=== PATIENT | male | born 2000 | race Caucasian/White ===

== ENCOUNTER 2022-08-20 09:11 | Emergency (ER) | payer OTHER ==
[~2022-08-20] VITALS: Ht 185.4 cm; Wt 113.5 kg
[2022-08-20] MEDS ORDERED: IBUPROFEN 800 MG TAB PO ONE (11:10)
[2022-08-20 12:08] LABS: HEMATOCRIT 44.3 % (42.0-52.0); HEMOGLOBIN 13.8 g/dl (13.5-17.5); MEAN CORPUSCULAR HEMOGLOBIN 27.5 pg (27.0-33.0); MEAN CORPUSCULAR HGB CONC 31.2 g/dl (32.0-36.5); MEAN CORPUSCULAR VOLUME 88.4 fl (80.0-96.0); PLATELET COUNT, AUTOMATED 285 10^3/uL (150-450); RED BLOOD COUNT 5.01 10^6/uL (4.30-6.10); WHITE BLOOD COUNT 8.1 10^3/uL (4.0-10.0)
[2022-08-20 14:41] VITALS: BP 133/62
[2022-08-20 15:17] LABS: BLOOD UREA NITROGEN 16 MG/DL (7-18); CALCIUM LEVEL 9.7 MG/DL (8.5-10.1); CARBON DIOXIDE LEVEL 27 MEQ/L (21-32); CHLORIDE LEVEL 109 MEQ/L (98-107); CK-MB VALUE MASS 2.3 NG/ML (<3.6); CREATININE FOR GFR 0.95 MG/DL (0.70-1.30); GLUCOSE, FASTING 100 MG/DL (70-100); MB/CK RELATIVE INDEX 1.35 (< OR =4); POTASSIUM SERUM 4.5 MEQ/L (3.5-5.1); SODIUM LEVEL 142 MEQ/L (136-145)
== END 2022-08-20 14:57 | disposition home or self-care (01) ==
LOC: M ED 09:11
DX: R07.89 Other chest pain (principal)

== ENCOUNTER 2023-05-05 08:55 | Emergency (ER) | payer OTHER ==
[~2023-05-05] VITALS: Ht 180.3 cm; Wt 123.2 kg
[2023-05-05] MEDS ORDERED: KETO10TAB PO (13:33)
[2023-05-05 13:40] VITALS: BP 161/99; TEMP 97.4; O2SAT 100
[2023-05-05 15:00] LABS: GC DNA AMPLIFICATION NEGATIVE (NEGATIVE)
== END 2023-05-05 13:41 | disposition home or self-care (01) ==
LOC: M ED 08:55
DX: N50.812 Left testicular pain (principal); N50.3 Cyst of epididymis

== ENCOUNTER → 2023-06-25 | Outpatient (CLI) | payer OTHER ==
[~2023-06-25] MED LIST: KETO10TAB PO
== END ==
LOC: M SOG 08:46
PROVIDERS: ATTEND Physician Assistant
DX: M79.632 Pain in left forearm (principal)

== ENCOUNTER → 2023-09-01 | Outpatient (CLI) | payer OTHER | LOC: M RAD 06:58 | PROVIDERS: ATTEND Physician Assistant | DX: M25.541 Pain in joints of right hand (principal); M65.841 Other synovitis and tenosynovitis, right hand ==

== ENCOUNTER 2023-11-06 10:48 | Day surgery (SDC) | payer OTHER ==
[~2023-11-06] VITALS: Ht 185.4 cm; Wt 130.0 kg
[~2023-11-06 10:48] MED LIST changes: +ceFAZolin SOD 2 GM in IV 1 EA IV ONE
[2023-11-06] MEDS ORDERED: LR 1,000 ML IV SCH ×2 (11:30→14:15)
[2023-11-06] MEDS ORDERED: LIDOCAINE 2% 100MG/5ML SDV (FOR ANES.) As Ordered ONE (13:05)
[2023-11-06] MEDS ORDERED: MIDAZOLAM INJ 2MG/2ML VIAL As Ordered ONE (13:05)
[2023-11-06] MEDS ORDERED: propofoL 200 MG/20 ML VIAL As Ordered ONE (13:05)
[2023-11-06] MEDS ORDERED: fentaNYL 100 MCG/2 ML INJECTION As Ordered ONE ×2 (13:05→13:22)
[2023-11-06] MEDS ORDERED: dexmedeTOMIDine (4MCG/ML)200MCG/50ML BTL (PRECEDEX) As Ordered ONE (13:05)
[2023-11-06] MEDS ORDERED: ONDANSETRON 4MG 2ML VIAL As Ordered ONE (13:05)
[2023-11-06] MEDS ORDERED: KETOROLAC 60MG 2ML VIAL As Ordered ONE (13:52)
[2023-11-06] MEDS ORDERED: HYDROMORPHONE HCL 0.5 MG/ 0.5 ML SYRINGE IV PRN (14:15)
[2023-11-06] MEDS ORDERED: oxyCODONE 5MG TAB PO PRN (14:15)
[2023-11-06] MEDS ORDERED: fentaNYL 100 MCG/2 ML INJECTION IV PRN (14:15)
[2023-11-06] MEDS ORDERED: ONDANSETRON 4MG 2ML VIAL IV PRN (14:15)
[2023-11-06] MEDS ORDERED: PERC5TAB12 PO (14:46)
[2023-11-06 15:38] VITALS: BP 119/60; TEMP 98.1; O2SAT 98
== END 2023-11-06 15:48 | disposition home or self-care (01) ==
LOC: M SDC 10:48
PROVIDERS: ATTEND Orthopaedic Surgery Hand Surgery
DX: G56.31 Lesion of radial nerve, right upper limb (principal); Z79.899 Other long term (current) drug therapy
CPT/HCPCS: 64708; J0665; J0690; J1100; J1885; J2250; J2405; J3010